=== PATIENT | female | born 1990 | race Asian ===

== ENCOUNTER 2019-02-01 12:21 | Emergency (ER) | payer SELFPAY ==
[~2019-02-01] VITALS: Ht 147.3 cm; Wt 42.2 kg
[2019-02-01 12:27] VITALS: BP 107/62
--- NOTE | 2019-02-01 12:36 | NUR ---
PT. AMBULATED TO ER BED 11
[2019-02-01] MEDS ORDERED: IBUPROFEN 400 MG TAB PO ONE (12:50)
--- NOTE | 2019-02-01 12:58 | NUR ---
x-ray at bedside
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
[2019-02-01 14:11] VITALS: BP 109/85
== END 2019-02-01 14:11 | disposition home or self-care (01) ==
LOC: MED 12:21
DX: S40.022A Contusion of left upper arm, initial encounter (principal); S70.11XA Contusion of right thigh, initial encounter; S80.01XA Contusion of right knee, initial encounter; S60.222A Contusion of left hand, initial encounter; W20.8XXA Other cause of strike by thrown, projected or falling object, initial encounter; Y93.89 Activity, other specified; Y92.89 Other specified places as the place of occurrence of the external cause; Y99.8 Other external cause status
CPT/HCPCS: 71045; 73130; 73562; 81002; 81025; 99283